=== PATIENT | male | born 1950 | race Caucasian/White ===

== ENCOUNTER → 2017-11-22 | Outpatient (CLI) | payer MEDICARE ==
[~2017-11-22] MED LIST: ACETAMINOPHEN-H1 TA2 PO; ADVAIR 250/501 EA INH; ADVAIR INHALER; ALBUTEROL INHALER; AMOXICILLIN500 MG PO; ASPIRIN; CEPHALEXIN500 M1 PO; DELTASONE10 MG PO; Duoneb 3ML 3 MG/3 ML INH; FLOMAX0.4 MG PO; MOTRIN800 MG PO; NORCO 5-325 TA1 EACH PO; OMNICEF300 MG PO; PREDNISONE; PREDNISONE20 MG PO; PROTON; PROTONIX40 MG PO; RESTORIL30 MG PO; SPIRIVA -- 3018 MCG PO; SPIRIVA INHALER; THEODUR; THEOPHYLLINE300 M2 PO; ULTRAM50 MG PO
[2017-11-23 09:11] LABS: ALPHA-1-ANTITRYPSIN, SERUM 133 mg/dL (90-200)
== END | disposition home or self-care (01) ==
LOC: LAB 10:17
PROVIDERS: Internal Medicine Critical Care Medicine
DX: J44.9 Chronic obstructive pulmonary disease, unspecified (principal); D64.9 Anemia, unspecified; R53.83 Other fatigue

== ENCOUNTER → 2017-12-16 | Outpatient (CLI) | payer MEDICARE ==
[2017-12-16 10:43] LABS: BUN 14 mg/dl (7-24); CREATININE 0.84 mg/dL (0.70-1.30)
== END | disposition home or self-care (01) ==
LOC: LAB 10:18 → CT 11:00
PROVIDERS: Internal Medicine Critical Care Medicine
DX: J44.9 Chronic obstructive pulmonary disease, unspecified (principal); R91.1 Solitary pulmonary nodule

== ENCOUNTER → 2018-08-12 | Outpatient (CLI) | payer MEDICARE | END | disposition home or self-care (01) | LOC: CT 09:57 | DX: R91.1 Solitary pulmonary nodule (principal) ==

== ENCOUNTER → 2019-03-17 | Outpatient (CLI) | payer OTHER ==
[2019-03-17 10:51] LABS: BASO # 0.1 10*3/uL (0.0-0.1); BASO % 0.8 % (0.0-1.0); EOS # 0.2 10*3/uL (0.0-0.4); EOS % 3.3 % (1.0-4.0); HEMATOCRIT 45.8 % (42.0-52.0); HEMOGLOBIN 14.9 g/dl (14.0-18.0); LYMPH # 1.6 10*3/uL (1.3-4.4); LYMPH % 23.7 % (27.0-41.0); MEAN CELL VOLUME 97.9 fl (80.0-94.0); MEAN CORPUSCULAR HGB 31.8 pg (27.0-31.0); MEAN CORPUSCULAR HGB CONC 32.5 g/dl (33.0-37.0); MEAN PLATELET VOLUME 9.5 fl (9.6-12.3); MONO # 0.6 10*3/uL (0.1-1.0); MONO % 8.8 % (3.0-9.0); NEUT # 4.2 10*3/uL (2.3-7.9); NEUT % 62.9 % (47.0-73.0); PLATELET COUNT AUTOMATED 226 10*3/uL (130-400); RED BLOOD COUNT 4.68 10*6/uL (4.50-5.90); RED CELL DISTRI WIDTH 13.1 % (0-14.5); WHITE BLOOD COUNT 6.6 10*3/uL (4.8-10.8)
[2019-03-17 11:15] LABS: ALBUMIN 3.5 gm/dl (3.1-4.5); ALKALINE PHOSPHATASE 96 U/L (45-117); BUN 12 mg/dl (7-24); CHLORIDE 107 mmol/L (98-107); CREATININE 0.85 mg/dL (0.70-1.30); POTASSIUM 4.5 mmol/L (3.5-5.1); SGOT/AST 16 IU/L (3-35); SGPT/ALT 20 U/L (12-78); SODIUM 140 mmol/L (136-145); THEOPHYLLINE 11.9 ug/ml (10-20); TOTAL PROTEIN 7.4 gm/dL (6.4-8.2)
[2019-03-17 11:30] LABS: INTERNATIONAL NORM RATIO 0.9 (2.0-3.5)
== END | disposition home or self-care (01) ==
LOC: LAB 10:18
PROVIDERS: Family Medicine
DX: Z51.81 Encounter for therapeutic drug level monitoring (principal); J44.9 Chronic obstructive pulmonary disease, unspecified; K92.2 Gastrointestinal hemorrhage, unspecified

== ENCOUNTER → 2019-05-01 | Day surgery (SDC) | payer OTHER ==
--- NOTE | ~2019-05-01 | O ---
[place], [place] OPERATIVE NOTE NAME: MTAA GODINEZ UNIT #: [id number] ROOM: DOCTOR: NATHALIA MEDINA MD BIRTHDATE: [birth year] DOS: 05/01/2019 GASTROENDOSCOPIC REPORT INDICATION: The patient is a 68-year-old patient who has presented with chief complaint of rectal bleed, undergoing investigation. PAST MEDICAL HISTORY: Associated with COPD. ALLERGIES: No known medication. FAMILY HISTORY: Noncontributory. PAST SURGICAL HISTORY: Left elbow bursa and vasectomy. SOCIAL HISTORY: Smoker and a social alcohol consumer. PROCEDURE: Today's procedure part of investigation is colonoscopy plus piecemeal polypectomy. PREMEDICATION: Propofol. SCOPE: Olympus forward-viewing colonoscope 10L video. REPORT: After putting the patient in left lateral position and application of lubricant to the scope, the scope was introduced. Thereafter, under direct visualization, advanced through the length of colon without difficulty. Diverticulosis was noticed. Sessile polypoid lesion and rectal pouch with piecemeal polypectomy removed. Base of cecum explored. Air was suctioned out. The patient was extubated, tolerated the procedure well. IMPRESSION: Diverticulosis, sessile rectal pouch polyp, status post piecemeal polypectomy. PLAN: High fiber fruit diet. ACTIVITY: Ad fernando. FOLLOWUP: As outpatient. Thank you very much indeed for your kind referral. [place], [place] OPERATIVE NOTE NAME: MATA GODINEZ UNIT #: [id number] ROOM: DOCTOR: NATHALIA MEDINA MD BIRTHDATE: [birth year] NATHALIA MEDINA MD CM:OPRECORD:OPERATIVE NOTE 1321 133 MARIA A MEDINA MD 05/01/19 1331 interface
[2019-05-01 12:00] VITALS: BP 124/99
[2019-05-01 13:20] VITALS: BP 109/60
[2019-05-01 13:29] VITALS: BP 110/65
[2019-05-01 13:50] VITALS: BP 114/74
== END | disposition home or self-care (01) ==
LOC: SDC 04-28 13:15
DX: K62.5 Hemorrhage of anus and rectum (principal); J44.9 Chronic obstructive pulmonary disease, unspecified; F17.210 Nicotine dependence, cigarettes, uncomplicated; K57.90 Diverticulosis of intestine, part unspecified, without perforation or abscess without bleeding; K62.1 Rectal polyp; K21.9 Gastro-esophageal reflux disease without esophagitis

== ENCOUNTER → 2019-08-19 | Outpatient (CLI) | payer OTHER | END | disposition home or self-care (01) | LOC: CT 08-17 13:00 | DX: J43.9 Emphysema, unspecified (principal); J84.10 Pulmonary fibrosis, unspecified; F17.200 Nicotine dependence, unspecified, uncomplicated; R91.1 Solitary pulmonary nodule ==

== ENCOUNTER 2022-02-07 18:07 | Inpatient (IN) | payer OTHER ==
[~2022-02-07] VITALS: Ht 177.8 cm; Wt 83.5 kg
[2022-02-07 18:13] VITALS: BP 160/86
[2022-02-07 18:34] LABS: BASO # 0.1 10*3/uL (0.0-0.1); BASO % 0.5 % (0.0-1.0); EOS # 0.2 10*3/uL (0.0-0.4); EOS % 2.4 % (1.0-4.0); LYMPH # 1.3 10*3/uL (1.3-4.4); LYMPH % 13.9 % (27.0-41.0); MEAN CELL VOLUME 91.8 fl (80.0-94.0); MEAN CORPUSCULAR HGB 30.8 pg (27.0-31.0); MEAN CORPUSCULAR HGB CONC 33.5 g/dl (33.0-37.0); MEAN PLATELET VOLUME 8.3 fl (9.6-12.3); MONO # 0.7 10*3/uL (0.1-1.0); MONO % 7.1 % (3.0-9.0); NEUT # 6.9 10*3/uL (2.3-7.9); NEUT % 75.2 % (47.0-73.0); PLATELET COUNT AUTOMATED 262 10*3/uL (130-400); RED BLOOD COUNT 4.03 10*6/uL (4.50-5.90); RED CELL DISTRI WIDTH 12.7 % (0-14.5); WHITE BLOOD COUNT 9.2 10*3/uL (4.8-10.8)
[2022-02-07 18:46] LABS: ACT PARTIAL THROMBO TIME 32.5 SECONDS (20.0-32.1)
[2022-02-07 18:48] LABS: ALKALINE PHOSPHATASE 105 U/L (45-117); BUN 8 mg/dl (7-24); CHLORIDE 102 mmol/L (98-107); CREATININE 0.88 mg/dL (0.70-1.30); POTASSIUM 4.4 mmol/L (3.5-5.1); SGOT/AST 21 IU/L (3-35); SGPT/ALT 24 U/L (12-78); SODIUM 132 mmol/L (136-145); TOTAL PROTEIN 7.2 gm/dL (6.4-8.2)
[2022-02-07 21:38] VITALS: BP 148/77
[2022-02-07] MEDS ORDERED: SPIRIVA RESPIMAT4 GM INH (22:36)
[2022-02-07] MEDS ORDERED: LOSARTAN POTASS25 M1 PO (22:37)
[2022-02-08 05:08] LABS: BUN 6 mg/dl (7-24); CHLORIDE 106 mmol/L (98-107); CREATININE 0.78 mg/dL (0.70-1.30); POTASSIUM 4.4 mmol/L (3.5-5.1); SODIUM 136 mmol/L (136-145)
[2022-02-08 05:13] LABS: CHOLESTEROL 116 mg/dL (<200); LDL CHOLESTEROL 35 mg/dL (9-159); TRIGLYCERIDES 36 mg/dl (<150)
[2022-02-08 06:07] LABS: BASO % 0.3 % (0.0-1.0); EOS % 0.3 % (1.0-4.0); HEMATOCRIT 37.3 % (42.0-52.0); LYMPH # 0.6 10*3/uL (1.3-4.4); MEAN CELL VOLUME 92.6 fl (80.0-94.0); MEAN CORPUSCULAR HGB 30.5 pg (27.0-31.0); MONO # 0.2 10*3/uL (0.1-1.0); NEUT % 88.5 % (47.0-73.0); PLATELET COUNT AUTOMATED 278 10*3/uL (130-400); RED BLOOD COUNT 4.03 10*6/uL (4.50-5.90); RED CELL DISTRI WIDTH 12.7 % (0-14.5); WHITE BLOOD COUNT 7.9 10*3/uL (4.8-10.8)
[2022-02-08 06:21] VITALS: BP 132/74
[2022-02-08 10:30] VITALS: BP 139/92
[2022-02-08] MEDS ORDERED: CRESTOR5 MG PO (11:33)
[2022-02-08] MEDS ORDERED: DICLOFENAC SOD75 MG PO (11:34)
[2022-02-08] MEDS ORDERED: BREO ELLIPTA 21 EACH INH (11:35)
[2022-02-08 12:00] VITALS: BP 147/70
[2022-02-08 16:00] VITALS: BP 142/81
[2022-02-08 20:00] VITALS: BP 145/75
[2022-02-09] VITALS: BP 140/68
[2022-02-09 06:27] LABS: BUN 13 mg/dl (7-24); CHLORIDE 104 mmol/L (98-107); CREATININE 0.92 mg/dL (0.70-1.30); POTASSIUM 4.7 mmol/L (3.5-5.1); SODIUM 135 mmol/L (136-145)
[2022-02-09 08:00] VITALS: BP 129/88
[2022-02-09] MEDS ORDERED: PREDNISONE10 MG PO (08:14)
[2022-02-09] MEDS ORDERED: VIBRAMYCIN HYC100 MG PO (08:14)
[2022-02-09] MEDS ORDERED: OXYGEN NAS (08:15)
[2022-02-09 12:00] VITALS: BP 126/71
[2022-02-09 16:00] VITALS: BP 106/61
[2022-02-09 20:00] VITALS: BP 107/76
[2022-02-10] VITALS: BP 104/67
[2022-02-10 05:45] LABS: BUN 15 mg/dl (7-24); CHLORIDE 108 mmol/L (98-107); POTASSIUM 4.6 mmol/L (3.5-5.1); SODIUM 138 mmol/L (136-145)
[2022-02-10 05:46] LABS: CREATININE 0.82 mg/dL (0.70-1.30)
[2022-02-10 08:00] VITALS: BP 121/80
[2022-02-10] MEDS ORDERED: XARE20MG PO (12:41)
[2022-02-10] MEDS ORDERED: CARDIZEM CD180 MG PO (12:43)
== END 2022-02-10 17:28 | disposition home or self-care (01) | DRG 871 ==
LOC: ED 18:07 → EDHOLD 21:10 → 5E 21:10
PROVIDERS: Family Medicine; Nurse Practitioner Family; Student in an Organized Health Care Education/Training Program; ADMIT Internal Medicine; ATTEND Internal Medicine
DX: A41.9 Sepsis, unspecified organism (principal); J96.21 Acute and chronic respiratory failure with hypoxia; J15.6 Pneumonia due to other Gram-negative bacteria; E87.1 Hypo-osmolality and hyponatremia; E44.1 Mild protein-calorie malnutrition; I44.0 Atrioventricular block, first degree; E83.51 Hypocalcemia; D64.9 Anemia, unspecified; J43.9 Emphysema, unspecified; E78.5 Hyperlipidemia, unspecified; I10 Essential (primary) hypertension; R65.20 Severe sepsis without septic shock; F17.210 Nicotine dependence, cigarettes, uncomplicated; I48.91 Unspecified atrial fibrillation; Z83.3 Family history of diabetes mellitus; Z82.49 Family history of ischemic heart disease and other diseases of the circulatory system; Z85.46 Personal history of malignant neoplasm of prostate; Z92.3 Personal history of irradiation; Z98.49 Cataract extraction status, unspecified eye; Z83.6 Family history of other diseases of the respiratory system; Z71.6 Tobacco abuse counseling; Z68.26 Body mass index [BMI] 26.0-26.9, adult; I25.10 Atherosclerotic heart disease of native coronary artery without angina pectoris

== ENCOUNTER → 2022-03-23 | Outpatient (CLI) | payer OTHER ==
[~2022-03-23] MED LIST changes: +BREO ELLIPTA 21 EACH INH; +CARDIZEM CD180 MG PO; +CRESTOR5 MG PO; +DICLOFENAC SOD75 MG PO; +LOSARTAN POTASS25 M1 PO; +OXYGEN NAS; +PREDNISONE10 MG PO; +SPIRIVA RESPIMAT4 GM INH; +VIBRAMYCIN HYC100 MG PO; +XARE20MG PO
== END | disposition home or self-care (01) ==
LOC: RESCLI 13:48
PROVIDERS: ATTEND Internal Medicine
DX: I48.91 Unspecified atrial fibrillation (principal); J44.9 Chronic obstructive pulmonary disease, unspecified; I10 Essential (primary) hypertension; E78.2 Mixed hyperlipidemia; K21.9 Gastro-esophageal reflux disease without esophagitis; M19.91 Primary osteoarthritis, unspecified site; Z72.89 Other problems related to lifestyle; Z98.890 Other specified postprocedural states; Z79.899 Other long term (current) drug therapy

== ENCOUNTER 2024-05-30 19:09 | Emergency (ER) | payer OTHER ==
[~2024-05-30] VITALS: Ht 180.3 cm; Wt 78.9 kg
[~2024-05-30 19:09] MED LIST changes: +B-1100 M1 PO; +CITALOPRAM10 MG PO; -CRESTOR5 MG PO; +DILTIAZEM 24HR180 MG PO; +METOPROLOL SUCC25 M2 PO; +MUCUS RELIEF600 MG PO; +NATURE'S BLEND F1 MG PO; +PREDNISONE50 MG PO; +RESTORIL30 M1 PO; +ROSUVASTATIN CA20 MG PO; +VENT7GM INH; +WIXELA 100-501 EACH INH; +XARELTO20 M1 PO; +ZITHROMAX250 MG PO; +ZITHROMAX500 MG PO
[2024-05-30] MEDS ORDERED: Albuterol Sulf/Ipratropium 3 ML VIAL NEB ONE (19:15)
[2024-05-30] MEDS ORDERED: methylPREDNISolone sod succ 125 MG VIAL IV ONE (19:15)
[2024-05-30 19:39] LABS: BASO # 0.1 10*3/uL (0.0-0.1); BASO % 0.4 % (0.0-1.0); EOS # 0.1 10*3/uL (0.0-0.4); EOS % 0.7 % (1.0-4.0); HEMATOCRIT 31.6 % (42.0-52.0); MEAN CELL VOLUME 76.5 fl (80.0-94.0); MEAN CORPUSCULAR HGB 23.5 pg (27.0-31.0); MEAN CORPUSCULAR HGB CONC 30.7 g/dl (33.0-37.0); MEAN PLATELET VOLUME 8.4 fl (9.6-12.3); MONO # 1.1 10*3/uL (0.1-1.0); MONO % 7.1 % (3.0-9.0); NEUT # 12.2 10*3/uL (2.3-7.9); PLATELET COUNT AUTOMATED 322 10*3/uL (130-400); RED BLOOD COUNT 4.13 10*6/uL (4.50-5.90); WHITE BLOOD COUNT 14.9 10*3/uL (4.8-10.8)
[2024-05-30 20:03] LABS: BUN 11 mg/dl (9-23); CHLORIDE 97 mmol/L (98-107); POTASSIUM 5.1 mmol/L (3.4-5.1)
[2024-05-30] MEDS ORDERED: SODIUM CHLORIDE 0.9% 1,000 ML IV ONE (23:30)
[2024-05-30] MEDS ORDERED: Ceftriaxone Sodium 1 GM/10 ML SYR IV ONE (23:50)
[2024-05-30] MEDS ORDERED: AZITHROMYCIN 250 ML IV ONE (23:50)
== END 2024-05-31 00:51 | disposition short-term general hospital (02) ==
LOC: ED 19:09
PROVIDERS: Emergency Medicine
DX: J93.9 Pneumothorax, unspecified (principal); E87.1 Hypo-osmolality and hyponatremia; D72.89 Other specified disorders of white blood cells; I48.91 Unspecified atrial fibrillation; I10 Essential (primary) hypertension; J44.9 Chronic obstructive pulmonary disease, unspecified; K21.9 Gastro-esophageal reflux disease without esophagitis; E78.5 Hyperlipidemia, unspecified; Z79.899 Other long term (current) drug therapy; Z98.890 Other specified postprocedural states; Z87.891 Personal history of nicotine dependence